=== PATIENT | male | born 1960 | race Caucasian/White ===

== ENCOUNTER 2019-01-27 06:06 | Inpatient (IN) ==
[2019-01-27] MEDS ORDERED: CeFAZolin Syr 2,000MG/20 ML 2,000 MG/20 ML SYRINGE IVPB ONE (06:24)
[2019-01-27] MEDS ORDERED: Albuterol 2.5 MG/3 ML NEBULIZER IH ONE (06:27)
[2019-01-27] MEDS ORDERED: Ringers Solution, Lactated 1,000 ML IVC SCH (06:30)
[2019-01-27] MEDS ORDERED: *HR* FentaNYL (PF) 100 MCG/2 ML VIAL ONE ×2 (07:04→07:31)
[2019-01-27] MEDS ORDERED: Lidocaine -MPF 2% 2 ML VIAL ONE (07:05)
[2019-01-27] MEDS ORDERED: Ondansetron 4 MG/2 ML VIAL ONE (07:05)
[2019-01-27] MEDS ORDERED: Dexamethasone 4 MG/ML VIAL ONE (07:05)
[2019-01-27] MEDS ORDERED: *HR* Midazolam HCl 2 MG/2 ML VIAL ONE (07:05)
[2019-01-27] MEDS ORDERED: *HR* Propofol 200 MG/20 ML VIAL IVP ONE ×2 (07:05→07:31)
[2019-01-27] MEDS ORDERED: *HR* Succinylcholine 200 MG/10 ML VIAL IVP ONE (07:05)
[2019-01-27] MEDS ORDERED: *HR* Phenylephrine 10 MG/ML VIAL ONE (07:09)
[2019-01-27] MEDS ORDERED: Lidocaine HCL 4 ML Topical Solution (Laryng-O-Jet Kit Sterile Pak) TP ONE ×2 (07:12→07:30)
--- NOTE | 2019-01-27 07:17 | Anesthesia Evaluation PreOp ---
Date of Encounter: 01/27/19 Time of Encounter: 07:16 - Past History Planned Operation: Right graft thrombectomy, poss fem-fem bypass Cardiac History: Hyperlipidemia, Other (PVD) Pulmonary History: Smoker, Snore SOLID PLASTERER History: Denies Any Significant HX Other Medical History: Denies Any Significant HX Anesthesia History: No Prior Anesthetic Complications, Past Anesthesia (aorta- bifem) Alcohol Use: heavy Drug use: none Medications and Allergies No Known Home Drugs 01/27/19 [History] Allergy/AdvReac Type Severity Reaction Status Date / Time No Known Allergies Allergy Verified 01/27/19 06:53 - Meds/Allergy Pre-op Review Medications Reviewed: Yes Allergies Reviewed: Yes Beta Blockers on Current Med List: No Anesthesia Results - Labs Laboratory Tests 01/24/19 01/24/19 01/24/19 12:29 12:29 12:29 WBC 7.8 Hgb 15.3 Hct 43.0 Plt Count 124 L PT 11.6 INR 1.0 APTT 30.0 Sodium 135 L Potassium 3.6 Chloride 104 Carbon Dioxide 27 BUN 8 Creatinine 0.78 Est GFR ( Amer) > 60 Est GFR (Non-Af Amer) > 60 BUN/Creatinine Ratio 10 Glucose 93 Calculated Osmolality 278 L Calcium 8.9 - Imaging EKG: report reviewed, image reviewed (SR) Additional studies: Stress: Indications: Pre-operative Impression: Pharmacologic stress ECG is negative for ischemia at level of heart rate achieved. Gated EF = 54%. Perfusion imaging was negative for ischemia or infarct. Anesthesia Exam Last Vital Signs Temp 98.4 F 01/27/19 07:05 Pulse 76 01/27/19 07:05 Resp 18 01/27/19 07:05 BP 157/99 01/27/19 07:05 Pulse Ox 98 01/27/19 07:05 Weight: 72 kg NPO (# of Hours): > 8 hrs - HEENT Pupil (Motor): Pupils equal, EOMI Mallampati: II Teeth: Missing, Poor dentition Oral Opening: Greater than 3 - SOLID PLASTERER LOC: Oriented - Cardiac Rhythm: Regular Murmur: None - Pulmonary Breath Sounds: bilateral Clear Respiratory Effort: Symmetrical Anesthesia Assess/Plan ASA Score: 3 Level of consciousness: Cooperative Anesthetic Plan: General Monitoring Plan: Standard Monitors, A-Line Recovery Plan: PACU
[2019-01-27] MEDS ORDERED: Heparin 1,000 UNITS/500 mL 500 ML ONE ×2 (07:20→07:27)
[2019-01-27] MEDS ORDERED: Acetaminophen IV 1,000 MG/100 ML INFUS..BTL IVPB ONE (07:20)
[2019-01-27] MEDS ORDERED: *HR* OxyCODONE Immed Rel 5 MG TABLET PO PRN ×2 (07:20→13:40)
[2019-01-27] MEDS ORDERED: *HR* Promethazine 25 MG/ML VIAL IVP PRN (07:20)
--- NOTE | 2019-01-27 07:31 | History & Physical Report ---
Date of Encounter: 01/27/19 Time of Encounter: 07:28 24 Hour HP Update - Instructions Instructions: If the History and Physical is less than 30 days old and was completed prior to A.M. admission and or procedure and has NOT been updated on calendar day of procedure please complete this update prior to performing procedure. - Update Patient reports changes in Medical Condition: No Changes in examination, assessment, or condition: No Changes in Medication: No Preop tests/diagnostics Reviewed: Yes Surgery Remains Indicated: Yes Consent for Planned Operative Procedure(s) Verified: Yes - Pre-Operative Checklist Preoperative Checklist Indicated: No
[2019-01-27] MEDS ORDERED: Vancomycin 1,000 MG, Sodium Chloride IRRigation 1,000 ML IR ONE (07:45)
[2019-01-27] MEDS ORDERED: *HR* Heparin 5,000 UNIT/ML VIAL ONE (08:26)
[2019-01-27] MEDS ORDERED: Calcium Gluconate 1,000 MG/10 ML VIAL ONE (08:53)
[2019-01-27] MEDS ORDERED: Neostigmine Methylsulfate 3 MG/3 ML SYRINGE ONE (09:45)
[2019-01-27] MEDS: *HR* FentaNYL (PF) 100 MCG/2 ML VIAL IVP PRN ×3 (10:55→11:33)
--- NOTE | 2019-01-27 11:12 | History & Physical Report ---
Date of Encounter: 01/27/19 Time of Encounter: 10:50 24 Hour HP Update - Instructions Instructions: If the History and Physical is less than 30 days old and was completed prior to A.M. admission and or procedure and has NOT been updated on calendar day of procedure please complete this update prior to performing procedure. - Update Patient reports changes in Medical Condition: No Changes in examination, assessment, or condition: No Changes in Medication: No Preop tests/diagnostics Reviewed: Yes Surgery Remains Indicated: Yes Consent for Planned Operative Procedure(s) Verified: Yes - Pre-Operative Checklist Preoperative Checklist Indicated: Yes Prophylactic Antibiotic Ordered: Yes (vancomycin due to risk of MRSA) Home Medications Include Beta Ruth: No Beta Ruth Taken Today (Day of Surgery): No Beta Ruth Taken Yesterday (Day Prior to Surgery): No Is VTE Prophylaxis Indicated?: Yes
--- NOTE | 2019-01-27 11:21 | Operative Note ---
Date of procedure: 01/27/19 Pre-op diagnosis: Peripheral vascular disease with disabling claudication. Post-op diagnosis: same Procedure: 1. Aorto-right femoral bypass graft thrombectomy with 5-Mongolian Lucero embolus to be catheter. 2. Right iliofemoral endarterectomy with Hemashield patch angioplasty. Complications: None Anesthesia: GETA Surgeon: Rene Begum Was there an conventions assistant present: No Estimated blood loss (cc): 50 Specimen: None Condition: stable Disposition: PACU Procedure in Detail: Indications: The patient is a 8-year-old male with a history of peripheral vascular disease with disabling claudication, hyperlipidemia and tobacco abuse. He is previously undergone a aortobifemoral bypass graft. He presented with disabling right lower extremity claudication. He is found have a right limb of his graft occlusion as well as occlusion of the common femoral artery. Revascularization was recommended to reduce his risk of limb loss and alleviate his symptoms. Procedure: The patient was identified in the preoperative area. The risks, benefits, and alternatives of procedure were discussed and all questions were answered. The patient was taken to the operating room and placed in supine position on the operating room table. After the induction of general endotracheal anesthesia, he was cleaned and draped in normal sterile fashion. An incision was made through the scar in the right groin sharply. Hemostasis was obtained with electrocautery. Through a process of blunt and sharp electrocautery dissection, the skin and subcutaneous tissues were incised and the right limb of his bypass graft, common femoral, deep femoral and superficial femoral arteries were dissected cicumferentially and surrounded with vessel loops. The patient received 5000 units of heparin intravenously and additional heparin throughout the case to maintain adequate anticoagulation. The vessels and graft limb were occluded by applying tension to the vessel loops. A longitudinal aRteriotomy was made through the graft anastomosis and into the common femoral artery. A 5-Mongolian Lucero catheter was advanced into the aorta and multiple passes were used to perform a graft thrombectomy. This resulted in strong antegrade flow through the graft limb. However it was noted that the common femoral artery remained occluded with intimal hyperplasia and plaque. The plaque extended from the external iliac artery into the deep femoral artery. Using a dental Seffner, a right iliofemoral endarterectomy was performed. Endpoints were inspected and no elevated flaps were noted. A Hemashield patch was cut to fit the arteriotomy and graftotomy. The Hemashield patch was then sutured in place with running 6-0 Prolene. Prior to completing the patch anastomosis, each vessel was flushed individually, then reoccluded. Heparinized saline was infused into the lumen. The patch was completed and flow was restored. A firm right inguinal lymph node was excised and sent to pathology. Thrombin and Gelfoam were used to aid in hemostasis. Polyphasic signal was noted distal to the distal end of the patch as well as the posterior tibial artery. Wound was irrigated with antibiotic-containing saline. Platelet-rich and platelet-poor plasma were infused into the wound. The wounds were reapproximated with layer of 2-0 Vicryl followed by two layers of 3-0 and Vicryl 3-0 Monocryl in the subcuticular layer. Sterile dressings were applied. The patient was extubated, taken to recovery room in stable condition.
--- NOTE | 2019-01-27 12:19 | Anesthesia Evaluation Post Op ---
Date of Encounter: 01/27/19 Time of Encounter: 12:19 - Vital Signs Vital Signs: Last Vital Signs Temp 97.6 F 01/27/19 12:10 Pulse 72 01/27/19 12:10 Resp 12 01/27/19 12:10 BP 149/90 01/27/19 12:10 Pulse Ox 98 01/27/19 12:10 - Lungs Lungs: Clear Ascult./Percussion - Airway Airway: Non-obstructed - Cardiovascular Regular Rate - Mental Status Mental Status: Alert & Oriented, Answers Appropriately - Pain Pain Scale: 1 - Nausea Vomiting Nausea Vomiting: Not Present - Hydration Hydration: NPO - Discharge PostOp Status: Transfer Patient to floor
[2019-01-27] MEDS ORDERED: *HR* Labetalol 20 MG/4 ML SYRINGE IVP PRN (13:40)
[2019-01-27] MEDS ORDERED: 0.9 % Sodium Chloride 1,000 ML IVC SCH (13:40)
[2019-01-27] MEDS ORDERED: Acetaminophen 325 MG TABLET PO PRN (13:40)
[2019-01-27] MEDS ORDERED: Naloxone 0.4 MG/ML INJ IVP PRN (13:40)
[2019-01-27] MEDS ORDERED: Ondansetron 4 MG/2 ML VIAL IVP PRN (13:40)
[2019-01-27] MEDS ORDERED: *HR* HYDROcodone/Acet 5/325 mg TABLET PO PRN (13:40)
[2019-01-27] MEDS: *HR* Metoprolol 5 MG/5 ML VIAL IVP SCH ×2 (16:01→19:51)
[2019-01-28] MEDS: *HR* Metoprolol 5 MG/5 ML VIAL IVP SCH ×2 (00:15→04:50)
[2019-01-28 05:58] LABS: Basophils % 0.1 %; Eosinophils % 0.4 %; Hematocrit 42.6 % (37.5-50.1); Hemoglobin 14.8 g/dL (12.9-16.9); Immature Granulocytes % 0.3 % (0-4); Lymphocytes # 1.7 K/mcL (0.6-4.6); Lymphocytes % 15.1 %; Mean Corpuscular HGB Conc 34.7 g/dL (31.6-35.5); Mean Corpuscular Hemoglobin 34.8 pg (28.0-33.3); Mean Corpuscular Volume 100.2 fL (83.0-100.0); Mean Platelet Volume 10.8 fL (9.4-12.4); Monocytes # 0.8 K/mcL (0.0-1.3); Monocytes % 7.3 %; Neutrophils # 8.6 K/mcL (1.6-8.9); Platelet Count 137 K/mcL (140-400); Red Blood Count 4.25 M/mcL (4.19-5.50); Red Cell Distribution Width 12.2 % (11.5-14.5); Segmented Neutrophils % 76.8 %; White Blood Count 11.2 K/mcL (4.3-11.1)
[2019-01-28] MEDS ORDERED: *HR* Heparin 5,000 UNIT/ML VIAL SQ SCH ×2 (06:00)
[2019-01-28 06:18] LABS: BUN/Creatinine Ratio 7 (6-26); Blood Urea Nitrogen 5 mg/dL (6-20); Calcium 9.2 mg/dL (8.6-10.3); Carbon Dioxide 26 mEq/L (23-29); Chloride 103 mEq/L (98-107); Glucose 107 mg/dL (70-105); Osmolality,Calculated 276 (280-300); Sodium 134 mEq/L (136-145); eGFR For African Americans > 60 (> 60); eGFR For Non-African Americans > 60 (> 60)
--- NOTE | 2019-01-28 07:38 | Discharge Summary ---
Date of Encounter: 01/28/19 Time of Encounter: 08:10 - Discharge Diagnosis (1) Atheroscler nonbiologic bypass graft both legs w/intermit claudication Priority: Primary Status: Chronic Comments: The patient is postoperative day #1 after bypass graft thrombectomy and iliofemoral endarterectomy on the right side. His wound is healing well. He has no hematoma. His compartments are soft. His pedal signals are polyphasic. He will be discharged today. (2) Mixed hyperlipidemia Priority: Secondary Status: Chronic Comments: The patient was counseled during atherosclerotic risk factor reduction. (3) Tobacco abuse Priority: Secondary Status: Chronic - Hospital Course Hospital course: Mr. Campos is a 58 year old male with a history of peripheral vascular disease with disabling claudication, mixed hyperlipidemia and tobacco abuse. The patient presented with an aortobifemoral bypass graft. He presented to clinic with complaints of disabling right lower extremity claudication was found have a right limb graft occlusion as well as occlusion of his femoral vessels. The patient underwent a femoral endarterectomy as well as a graft thrombectomy. He tolerated the procedure well. On postoperative day #1 without complaints and his right lower extremity was neurovascularly intact. He was discharged in stable condition without complications. Time spent discussing smoking cessation with patient: 3 to 10 minutes - Time Spent with Patient Total time spent providing and/or coordinating discharge services: - Discharge Medications Prescriptions: New OxyCODONE/APAP 5/325 [Percocet 5/325 MG] 1 each PO Q6HR PRN 5 Days #20 tablet PRN Reason: Postoperative pain Clopidogrel [Plavix] 75 mg PO DAILY #30 tablet Continued Aspirin [Adult Aspirin] 81 mg PO DAILY Home Medications: Aspirin [Adult Aspirin] 81 mg PO DAILY 01/27/19 [History] Clopidogrel [Plavix] 75 mg PO DAILY #30 tablet 01/28/19 [Rx] OxyCODONE/APAP 5/325 [Percocet 5/325 MG] 1 each PO Q6HR PRN 5 Days #20 tablet 01/28/19 [Rx] Allergies/Adverse Reactions: Allergy/AdvReac Type Severity Reaction Status Date / Time No Known Allergies Allergy Verified 01/27/19 06:53 Date of admission: 01/27/19 13:06 Primary care physician: Jazmin Mitchell CNP Procedure(s) Performed: Aorta to left femoral bypass graft thrombectomy, iliofemoral endarterectomy. Discharging clinician: Rene Begum Anticipated date of discharge: 01/28/19 Exam Vital Signs, Last 4 Hours Temp Pulse Resp BP Pulse Ox 01/28/19 06:48 98.8 F 57 16 169/84 94 01/28/19 03:52 98.5 F 58 17 171/91 94 General: Present: Conversant, No Apparent Distress HEENT: Present: Pupils equal Cardiac: Present: Reg Rate and Rhythm Lungs: Present: Normal Breath Sounds Neuro: Present: Alert and responsive, No focal deficits noted Abdomen: Present: Soft Vascular: Present: Normal capillary refill, Pulse, normal, Surgical incisions (Clean, dry and intact without erythema or drainage, no hematoma). Absent: Cyanosis, Edema Skin: Present: No rashes noted on visualized skin - Patient Status Disposition: Home, Self-Care Condition: Good Functional capacity at discharge: independent ambulation Overall status at discharge: patient is back to baseline - Discharge Instructions Instructions: Peripheral Vascular Disorders (DC) Follow Up With: Jazmin Mitchell CNP [Primary Care Provider] - 02/07/19 11:00 am Rene Begum MD [Partnered Physician] - 02/23/19 10:20 am Additional Instructions: May remove bandage and shower on 01/29/2019. Wash wound gently with soap and water only and pat to dry. Apply dry gauze to wound daily for 7 days. No tub baths or swimming until 03/01/2019. Call Dr. Begum at [phone] with questions or concerns. - Diet and Activity Activity: increase activity as tolerated Diet: advance to your usual diet
[2019-01-28] MEDS ORDERED: Aspirin Enteric Coated 81 MG Tablet PO SCH (09:00)
[2019-01-28 14:41] VITALS: BP 144/95
== END 2019-01-28 14:12 | disposition home or self-care (01) | DRG 169 ==
LOC: SAMDAY 06:06 → 2NNU 13:06
PROVIDERS: ADMIT Surgery; ATTEND Surgery

== ENCOUNTER 2022-02-27 06:11 | Inpatient (IN) ==
[~2022-02-27 06:11] MED LIST: Acetaminophen IV 1,000 MG/100 ML BAG IVPB ONE; Ringers Solution, Lactated 1,000 ML IVC ONE
[2022-02-27] MEDS ORDERED: CeFAZolin Syr 2,000MG/20 ML 2,000 MG/20 ML SYRINGE IVPB ONE (06:24)
[2022-02-27] MEDS ORDERED: Lidocaine HCL 4 ML Topical Solution (Laryng-O-Jet Kit Sterile Pak) TP ONE (06:54)
[2022-02-27] MEDS ORDERED: Ondansetron 4 MG/2 ML VIAL ONE (06:54)
[2022-02-27] MEDS ORDERED: Lidocaine -MPF 2% 5 ML VIAL ONE ×2 (06:54→10:01)
[2022-02-27] MEDS ORDERED: *HR* Propofol 200 MG/20 ML VIAL IVP ONE (06:54)
[2022-02-27] MEDS ORDERED: *HR* Rocuronium Bromide 50 MG/5 ML VIAL ONE ×2 (06:54→08:34)
[2022-02-27] MEDS ORDERED: *HR* FentaNYL (PF) 100 MCG/2 ML VIAL ONE ×3 (06:54→10:23)
[2022-02-27] MEDS ORDERED: *HR* Heparin 5,000 UNIT/ML VIAL ONE ×2 (06:55→06:58)
[2022-02-27] MEDS ORDERED: EPINEPHrine 1 MG/ML VIAL ONE (06:56)
[2022-02-27] MEDS ORDERED: Albuterol 2.5 MG/3 ML NEBULIZER IH PRN (07:00)
[2022-02-27] MEDS ORDERED: Famotidine 20 MG/2 ML VIAL IVP ONE (07:00)
[2022-02-27] MEDS ORDERED: *HR* Phenylephrine 10 MG/ML VIAL ONE (07:14)
[2022-02-27] MEDS ORDERED: Heparin 1,000 UNITS/500 mL 500 ML ONE ×2 (07:20→07:22)
[2022-02-27] MEDS ORDERED: Protamine Sulfate 50 MG/5 ML VIAL IVP ONE (07:20)
[2022-02-27] MEDS ORDERED: Bupivacaine-MPF 0.25% 10 ML VIAL ONE (07:20)
[2022-02-27] MEDS ORDERED: Naloxone 0.4 MG/ML INJ IVP PRN ×2 (07:30→16:13)
[2022-02-27] MEDS ORDERED: Vancomycin 1,000 MG, Sodium Chloride IRRigation 1,000 ML IR ONE (07:45)
[2022-02-27] MEDS ORDERED: Ondansetron 4 MG/2 ML VIAL IVP PRN ×2 (08:00→16:13)
[2022-02-27] MEDS ORDERED: *HR* FentaNYL (PF) 100 MCG/2 ML VIAL IVP PRN (08:00)
[2022-02-27] MEDS ORDERED: Sugammadex Sodium 200 MG/2 ML VIAL IV ONE (10:17)
[2022-02-27] MEDS ORDERED: *HR* Labetalol 20 MG/4 ML SYRINGE IVP ONE (10:23)
[2022-02-27] MEDS ORDERED: CeFAZolin 2,000 MG/120 ML BAG IVPB SCH (16:00)
[2022-02-27] MEDS ORDERED: *HR* Labetalol 20 MG/4 ML SYRINGE IVP PRN (16:13)
[2022-02-27] MEDS ORDERED: 0.9 % Sodium Chloride 1,000 ML IVC SCH (16:13)
[2022-02-27] MEDS: *HR* Metoprolol 5 MG/5 ML VIAL IVP SCH ×3 (16:26→23:12)
[2022-02-27] MEDS: CeFAZolin 2,000 MG/120 ML BAG IVPB SCH ×2 (16:34→23:11)
[2022-02-28] MEDS: *HR* Metoprolol 5 MG/5 ML VIAL IVP SCH (05:12)
[2022-02-28] MEDS ORDERED: *HR* Heparin 5,000 UNIT/ML VIAL SQ SCH ×2 (06:00)
[2022-02-28 08:00] VITALS: TEMP 97.5; O2SAT 97
[2022-02-28 08:02] VITALS: BP 169/66
[2022-02-28 09:51] VITALS: PULSE 65
== END 2022-02-28 10:36 | disposition home or self-care (01) | DRG 24 ==
LOC: SAMDAY 06:11 → 2NNU 15:03
PROVIDERS: ADMIT Surgery; ATTEND Surgery